=== PATIENT | female | born 1950 | race Caucasian/White ===

== ENCOUNTER 2017-04-24 06:54 | Day surgery (SDC) | payer OTHER, MEDICAID ==
[2017-04-24] MEDS ORDERED: NS 500 ML IV 500 ML IV ONE (07:11)
[2017-04-24] MEDS ORDERED: TETRACAINE 0.5% OPHTH 1 DOSE AFFEYE ONE ×4 (07:15→09:42)
[2017-04-24] MEDS ORDERED: VIGAMOX 0.5% OPHTH 1 DOSE AFFEYE ONE ×5 (07:16→09:54)
[2017-04-24] MEDS ORDERED: NS 1/2 1000 ML IV 500 ML IV ONE (07:20)
[2017-04-24] MEDS ORDERED: PROLENSA OPHTH 1 DOSE AFFEYE ONE (07:27)
[2017-04-24] MEDS ORDERED: ALPHAGAN-P OPHTH 1 DOSE AFFEYE ONE (07:28)
[2017-04-24] MEDS ORDERED: AK-DILATE 2.5% OPHTH 1 DOSE OP ONE ×3 (07:29→07:31)
[2017-04-24] MEDS ORDERED: CYCLOGYL 1% OPHTH 1 DOSE OP ONE ×3 (07:29→07:31)
[2017-04-24] MEDS ORDERED: MYDRIACIL OPHTH 1 DOSE AFFEYE ONE ×3 (07:29→07:31)
[2017-04-24] MEDS ORDERED: BETADINE OPHTH SOLN 5% EACHEYE ONE (09:14)
[2017-04-24] MEDS ORDERED: XYLOCAINE-MPF 1% IJ ONE ×2 (09:16→09:42)
[2017-04-24] MEDS ORDERED: ADRENALINE CHL INJ IJ ONE ×2 (09:16→09:42)
[2017-04-24] MEDS ORDERED: DUOVISC IO ONE ×2 (09:17→09:42)
[2017-04-24] MEDS ORDERED: BSS OPHTH (PLAIN) 500 ML with VANCOMYCIN HCL 500 MG VIAL 25 MG, ADRENALINE CHL INJ 1 MG IR ONE ×6 (09:18)
[2017-04-24 10:07] VITALS: BP 135/65
== END 2017-04-24 10:09 | disposition home or self-care (01) ==
LOC: SURG1 06:54
PROVIDERS: ATTEND Ophthalmology
PROC: 08DJ3ZZ Extraction of Right Lens, Percutaneous Approach (ICD-10-PCS; principal; 2017-04-24 08:15)
PROC: 08RJ3JZ Replacement of Right Lens with Synthetic Substitute, Percutaneous Approach (ICD-10-PCS; principal; 2017-04-24 08:15)
DX: H25.11 Age-related nuclear cataract, right eye (principal); H25.011 Cortical age-related cataract, right eye; H25.041 Posterior subcapsular polar age-related cataract, right eye; H52.221 Regular astigmatism, right eye
CPT/HCPCS: A4217; J0170; J3370

== ENCOUNTER 2017-05-15 10:57 | Day surgery (SDC) | payer OTHER, MEDICAID ==
[~2017-05-15 10:57] MED LIST: DIPRIVAN VIAL ONE; VERSED ONE
[2017-05-15] MEDS ORDERED: NS 500 ML IV 500 ML IV ONE (11:06)
[2017-05-15] MEDS ORDERED: TETRACAINE 0.5% OPHTH 1 DOSE AFFEYE ONE ×5 (11:30→14:04)
[2017-05-15] MEDS ORDERED: VIGAMOX 0.5% OPHTH 1 DOSE AFFEYE ONE ×5 (11:31→14:24)
[2017-05-15] MEDS ORDERED: PROLENSA OPHTH 1 DOSE AFFEYE ONE (11:41)
[2017-05-15] MEDS ORDERED: ALPHAGAN-P OPHTH 1 DOSE AFFEYE ONE (11:42)
[2017-05-15] MEDS ORDERED: MYDRIACIL OPHTH 1 DOSE AFFEYE ONE ×3 (11:43→11:45)
[2017-05-15] MEDS ORDERED: AK-DILATE 2.5% OPHTH 1 DOSE OP ONE ×3 (11:43→11:45)
[2017-05-15] MEDS ORDERED: CYCLOGYL 1% OPHTH 1 DOSE OP ONE ×2 (11:43→11:44)
[2017-05-15] MEDS ORDERED: BETADINE OPHTH SOLN 5% EACHEYE ONE (13:50)
[2017-05-15] MEDS ORDERED: BSS OPHTH (PLAIN) 500 ML with VANCOMYCIN HCL 500 MG VIAL 25 MG, ADRENALINE CHL INJ 1 MG IR ONE ×6 (13:52)
[2017-05-15] MEDS ORDERED: XYLOCAINE-MPF 1% IJ ONE ×2 (13:52→14:04)
[2017-05-15] MEDS ORDERED: ADRENALINE CHL INJ IJ ONE ×2 (13:52→14:04)
[2017-05-15] MEDS ORDERED: DUOVISC IO ONE ×2 (13:52→14:04)
[2017-05-15 14:46] VITALS: BP 121/63
== END 2017-05-15 14:50 | disposition home or self-care (01) ==
LOC: SURG1 10:57
PROVIDERS: ATTEND Ophthalmology
PROC: 08RK3JZ Replacement of Left Lens with Synthetic Substitute, Percutaneous Approach (ICD-10-PCS; principal; 2017-05-15 17:15)
PROC: 08DK3ZZ Extraction of Left Lens, Percutaneous Approach (ICD-10-PCS; principal; 2017-05-15 17:15)
DX: H25.12 Age-related nuclear cataract, left eye (principal); H25.012 Cortical age-related cataract, left eye; H25.042 Posterior subcapsular polar age-related cataract, left eye
CPT/HCPCS: A4217; J0170; J2250; J3370; J3490